=== PATIENT | male | born 1985 | race Caucasian/White ===

== ENCOUNTER 2016-10-21 16:28 | Emergency (ER) | payer OTHER ==
[2016-10-21] MEDS ORDERED: ONDANSETRON 4 MG ODT STARTER PACK 2 TAB BTL PO STA (16:44)
[2016-10-21] MEDS ORDERED: HYDROmorphone 1 MG/ML 1 ML SYRINGE IM STA (16:44)
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
[2016-10-21 17:57] VITALS: BP 119/73; PULSE 55; RESP 18; TEMP 98.4
== END 2016-10-21 18:23 | disposition home or self-care (01) ==
LOC: EC 16:28
DX: S42.022A Displaced fracture of shaft of left clavicle, initial encounter for closed fracture (principal); S90.512A Abrasion, left ankle, initial encounter; Z79.899 Other long term (current) drug therapy; V00.831A Fall from motorized mobility scooter, initial encounter; Y93.55 Activity, bike riding; Y92.410 Unspecified street and highway as the place of occurrence of the external cause
CPT/HCPCS: 99284; 96372; 73030; 73000; J1170; S0119